=== PATIENT | female | born 1995 | race Hispanic/Latino ===

== ENCOUNTER 2017-12-01 23:22 | Observation (INO) | payer MEDICAID, OTHER ==
[~2017-12-01] VITALS: Ht 165.1 cm; Wt 86.6 kg
[2017-12-02 00:11] LABS: MEAN CORPUSCULAR HEMOGLOBIN 24.7 pg (27.0-33.0); MEAN CORPUSCULAR VOLUME 77.2 fL (79-99); PLATELET COUNT (AUTO) 231 K/uL (130-400); RED BLOOD CELL COUNT(AUTO) 2.27 MIL/uL (4.00-5.50); RED CELL DISTRIBUTION WIDTH 17.3 % (11.0-15.5); WHITE BLOOD COUNT (AUTO) 7.7 K/uL (4.8-10.8)
[2017-12-02 00:20] LABS: HEMATOCRIT 17.5 % (36-48)
[2017-12-02 00:22] LABS: CREATININE 0.7 mg/dL (0.5-1.5); POTASSIUM 3.7 mmol/L (3.5-5.1)
[2017-12-02 00:27] LABS: ALBUMIN 3.4 g/dL (3.5-5.0); BILIRUBIN,TOTAL 0.2 mg/dL (0.2-1.0); TOTAL PROTEIN, SERUM 6.3 g/dL (6.0-8.3)
[2017-12-02 00:27] LABS: APPEARANCE,URINE Clear (CLEAR); BILIRUBIN,URINE Negative (NEGATIVE); GLUCOSE, URINE (UA) Negative (NEGATIVE); KETONES,URINE Negative (NEGATIVE); LEUKOCYTE ESTERASE ,URINE Negative (NEGATIVE); NITRATE,URINE Negative (NEGATIVE); OCCULT BLOOD,URINE Large (NEGATIVE); PH,URINE 7.5 (5.0-8.0); PROTEIN,URINE Negative (NEGATIVE)
[2017-12-02 00:29] LABS: HCG,QUAL RESULT NEGATIVE (NEGATIVE)
[2017-12-02 00:30] LABS: COLOR,URINE Pink (YELLOW)
[2017-12-02 00:39] LABS: RBC,URINE 26-50 /HPF (0-1)
[2017-12-02 00:40] LABS: INR 0.96 (0.85-1.15); PARTIAL THROMBOPLASTIN TIME 24.6 SEC (26.3-35.5); PROTHROMBIN TIME 10.1 SEC (9.6-11.6)
[2017-12-02 00:40] LABS: BACTERIA,URINE Few /HPF (None Seen); MUCUS,URINE Rare LPF (None Seen); SQUAMOUS EPITHELIAL CELL,UR 0-2 /LPF (0-2); WBC,URINE 0-1 /HPF (0-1)
[2017-12-02 00:44] LABS: LYMPHOCYTES % (MANUAL) 30 % (22-44); MAN.DIFF COMMENT-IMPRESSION MANUAL DIFFERENTIAL; MONOCYTES % (MANUAL) 6 % (2-9); REACTIVE LYMPHOCYTES 3 % (0-0); SEGMENTED NEUTROPHILS % 61 % (40-70)
[2017-12-02 00:45] LABS: PLATELET MORPHOLOGY COMMENT ADEQUATE
[2017-12-02] MEDS ORDERED: TRAMADOL HCL 50 MG TABLET ONE (01:03)
[2017-12-02] MEDS ORDERED: ONDANSETRON HCL 4 MG/2 ML VIAL ONE (02:27)
[2017-12-02] MEDS ORDERED: MEPERIDINE-PF 25 MG/ML SYG ONE (02:27)
[2017-12-02 04:53] VITALS: BP 118/67
[2017-12-02 07:20] VITALS: BP 99/65
[2017-12-02 10:24] LABS: HEMATOCRIT 23.6 % (36-48)
[2017-12-02 11:27] VITALS: BP 96/58
[2017-12-02] MEDS ORDERED: NORETHINDRONE-ETHINYL ESTRAD 1 TABLET PO SCH (12:00)
[2017-12-02] MEDS ORDERED: FERROUS SULFATE 325 MG TABLET.DR PO SCH (12:00)
[2017-12-02 15:45] VITALS: BP 109/59
[2017-12-02] MEDS ORDERED: NORE1TAB30 PO (17:29)
[2017-12-02] MEDS ORDERED: FERS325 PO (17:30)
== END 2017-12-02 18:30 | disposition home or self-care (01) ==
LOC: EDH 23:22 → WSH 23:23 → EDHIP 23:23
PROVIDERS: ADMIT Obstetrics & Gynecology; ATTEND Obstetrics & Gynecology
DX: N93.9 Abnormal uterine and vaginal bleeding, unspecified (principal)
CPT/HCPCS: 36415 ×2; 36430; 76830; 80053; 81001; 81025; 85025; 85610; 85730; 86850; 86900; 86901; 86922; 88313; 99285; G0378 ×19; J2175; J2405; P9016 ×3

== ENCOUNTER 2020-03-30 07:33 | Emergency (ER) | payer MEDICAID ==
[~2020-03-30 07:33] MED LIST: FERS325 PO; NORE1TAB30 PO
[2020-03-30 08:39] LABS: BASOPHILS % (AUTO) 0.6 % (0.0-5.0); EOSINOPHILS % (AUTO) 4.9 % (0.0-8.0); HEMATOCRIT 37.6 % (36-48); LYMPHOCYTES % (AUTO) 29.7 % (21.0-51.0); MEAN CORPUSCULAR HGB CONC 35.1 g/dL (32.0-36.0); MEAN CORPUSCULAR VOLUME 85.5 fL (79-99); MONOCYTES % (AUTO) 5.8 % (3.0-13.0); NEUTROPHILS % (AUTO) 57.9 % (40.0-77.0); PLATELET COUNT (AUTO) 180 K/uL (130-400); WHITE BLOOD COUNT (AUTO) 10.7 K/uL (4.8-10.8)
[2020-03-30 08:59] LABS: CREATININE 0.5 mg/dL (0.5-1.5); POTASSIUM 3.7 mmol/L (3.5-5.1)
[2020-03-30 09:25] LABS: BILIRUBIN,DIRECT 0.1 mg/dL (0.0-0.3); BILIRUBIN,TOTAL 0.4 mg/dL (0.2-1.0); TOTAL PROTEIN, SERUM 6.3 g/dL (6.0-8.3)
[2020-03-30 09:32] LABS: APPEARANCE,URINE CLEAR (CLEAR); BILIRUBIN,URINE NEGATIVE (NEGATIVE); COLOR,URINE ORANGE (YELLOW); GLUCOSE, URINE (UA) NEGATIVE (NEGATIVE); KETONES,URINE NEGATIVE (NEGATIVE); LEUKOCYTE ESTERASE ,URINE NEGATIVE (NEGATIVE); NITRATE,URINE NEGATIVE (NEGATIVE); OCCULT BLOOD,URINE LARGE (NEGATIVE); PH,URINE 7.5 (5.0-8.0); PROTEIN,URINE TRACE mg/dL (NEGATIVE); UROBILINOGEN,URINE 0.2 mg/dL (0.2-1.0)
[2020-03-30 09:41] LABS: AMPHET/METH SCREEN,URINE NEGATIVE (NEGATIVE); BARBITURATE SCREEN, URINE NEGATIVE (NEGATIVE); BENZODIAZEPINES SCREEN,URINE NEGATIVE (NEGATIVE); CANNABINOID SCREEN,URINE NEGATIVE (NEGATIVE); COCAINE SCREEN,URINE NEGATIVE (NEGATIVE); OPIATE SCREEN,URINE NEGATIVE (NEGATIVE); PHENCYCLIDINE SCREEN,URINE NEGATIVE (NEGATIVE)
[2020-03-30 09:46] LABS: BACTERIA,URINE Rare /HPF (None Seen); RBC,URINE TNTC /HPF (0-1); SQUAMOUS EPITHELIAL CELL,UR Rare /HPF (0-2)
== END 2020-03-30 11:19 | disposition home or self-care (01) ==
LOC: EDH 07:33
DX: O20.0 Threatened abortion (principal); Z3A.13 13 weeks gestation of pregnancy
CPT/HCPCS: 36415; 76810; 80048; 80076; 80305; 81001; 82550; 84702; 85025

== ENCOUNTER 2020-09-04 05:46 | Inpatient (IN) | payer MEDICAID ==
[~2020-09-04] VITALS: Ht 165.1 cm; Wt 111.1 kg
[2020-09-04] MEDS ORDERED: LACTATED RINGERS 1000ML 1,000 ML IV SCH (06:00)
[2020-09-04] MEDS ORDERED: CEFAZOLIN SODIUM 1 GM VIAL IVP PRN (06:00)
[2020-09-04 06:45] LABS: HEMATOCRIT 38.5 % (36-48); MEAN CORPUSCULAR HEMOGLOBIN 31.7 pg (27.0-33.0); MEAN CORPUSCULAR HGB CONC 35.6 g/dL (32.0-36.0); MEAN CORPUSCULAR VOLUME 89.1 fL (79-99); RED BLOOD CELL COUNT(AUTO) 4.32 MIL/uL (4.00-5.50); RED CELL DISTRIBUTION WIDTH 13.2 % (11.0-15.5)
[2020-09-04] MEDS ORDERED: CALDOLOR 800MG+NS 250ML 250 ML IV ONE (07:16)
[2020-09-04] MEDS ORDERED: METHYLERGONOVINE MALEATE 0.2 MG/1 ML ML ONE (07:17)
[2020-09-04 07:18] VITALS: BP 117/76
[2020-09-04] MEDS ORDERED: DURAMORPH PF1 MG/ML 10ML AMP IV ONE (07:45)
[2020-09-04] MEDS ORDERED: EPHEDRINE SULFATE 50 MG/ML AMPULE ONE (07:57)
[2020-09-04] MEDS ORDERED: ONDANSETRON HCL 4 MG/2 ML VIAL ONE (07:58)
[2020-09-04] MEDS ORDERED: SODIUM CHLORIDE 0.9% 10 ML VIAL IVP PRN (09:00)
[2020-09-04] MEDS ORDERED: OXYTOCIN-LR 20 UNITS/1000 ML 1,000 ML IV PRN (09:00)
[2020-09-04] MEDS ORDERED: MEPERIDINE-PF 75 MG/ML SYG IM PRN (09:00)
[2020-09-04] MEDS ORDERED: PROMETHAZINE HCL 25 MG/ML 1ML AMPULE IM PRN (09:00)
[2020-09-04] MEDS ORDERED: MISOPROSTOL 200 MCG TABLET ONE (10:35)
[2020-09-04] MEDS ORDERED: DiphenhydrAMINE HCL 50 MG/ML VIAL IVP PRN (10:45)
[2020-09-04] MEDS ORDERED: ONDANSETRON HCL 4 MG/2 ML VIAL IVP PRN (10:45)
[2020-09-04] MEDS ORDERED: NALOXONE HCL 0.4 MG/1 ML ML IVP PRN ×3 (10:45)
[2020-09-04 10:48] VITALS: BP 120/79
[2020-09-04 11:42] LABS: BASOPHILS % (AUTO) 0.2 % (0.0-5.0); EOSINOPHILS % (AUTO) 0.4 % (0.0-8.0); HEMATOCRIT 39.9 % (36-48); LYMPHOCYTES % (AUTO) 19.4 % (21.0-51.0); MEAN CORPUSCULAR HEMOGLOBIN 31.5 pg (27.0-33.0); MEAN CORPUSCULAR HGB CONC 34.6 g/dL (32.0-36.0); MEAN CORPUSCULAR VOLUME 91.1 fL (79-99); MONOCYTES % (AUTO) 5.1 % (3.0-13.0); NEUTROPHILS % (AUTO) 74.5 % (40.0-77.0); PLATELET COUNT (AUTO) 142 K/uL (130-400); RED BLOOD CELL COUNT(AUTO) 4.38 MIL/uL (4.00-5.50); RED CELL DISTRIBUTION WIDTH 13.4 % (11.0-15.5)
[2020-09-04 17:04] VITALS: BP 114/78
[2020-09-04] MEDS: DEXTROSE 5 %-0.45 % NACL 1,000 ML IV PRN (17:07)
[2020-09-04] MEDS: CALDOLOR 800MG+NS 250ML 250 ML IV SCH (17:07)
[2020-09-04] MEDS ORDERED: DIPH,PERTUSS(ACELL),TET VAC/PF 0.5 ML VIAL IM SCH (18:30)
[2020-09-04 19:22] VITALS: BP 120/80
[2020-09-04 23:22] VITALS: BP 115/77
[2020-09-05] MEDS: CALDOLOR 800MG+NS 250ML 250 ML IV SCH (01:15)
[2020-09-05] MEDS: DEXTROSE 5 %-0.45 % NACL 1,000 ML IV PRN (01:15)
[2020-09-05 03:45] VITALS: BP 107/66
[2020-09-05 06:28] LABS: HEMATOCRIT 32.9 % (36-48); MEAN CORPUSCULAR HEMOGLOBIN 31.2 pg (27.0-33.0); MEAN CORPUSCULAR VOLUME 91.6 fL (79-99); RED BLOOD CELL COUNT(AUTO) 3.59 MIL/uL (4.00-5.50); RED CELL DISTRIBUTION WIDTH 13.4 % (11.0-15.5); WHITE BLOOD COUNT (AUTO) 10.5 K/uL (4.8-10.8)
--- NOTE | 2020-09-05 06:50 | NUR ---
DAVID CHAPA, YOLANDA CARE DONE PT SAT UP AT BEDSIDE BY CORTEZ CONWAY TO CALL FOR ASSIST BEFORE GETTING OUT OF BED, VERBALIZED UNDERSTANDING. Addendum: 09/05/20 at 0707 by RICKY MCCULLOUGH RN RN Amended: Links added.
[2020-09-05 07:10] VITALS: BP 114/68
[2020-09-05 08:13] LABS: HEPATITIS Bs ANTIGEN SCREEN P Negative (Negative)
--- NOTE | 2020-09-05 08:15 | NUR ---
PATIENT WAS ASSISTED UP TO BATHROOM AND VOIDED 400CC AND TOLERATED ACTIVITY WELL. PATIENT WAS ASSESSED AND DRESSING TO ABDOMEN WAS REMOVED AND INCISION HAS NO DRAINAGE, SWELLING OR REDNESS. NON ADHESIVE PAD APPLIED TO INCISIONAL SITE AND PATIENT WAS INSTRUCTED ON INCISIONAL CARE AFTER DISCHARGE.
[2020-09-05] MEDS ORDERED: ACETAMINOPHEN-CODEINE 300/30MG TAB PO PRN (08:30)
[2020-09-05] MEDS ORDERED: LANOLIN 30GM OINTMENT TP PRN (08:30)
[2020-09-05] MEDS ORDERED: BISACODYL 10 MG SUPP.RECT RC PRN (08:30)
[2020-09-05] MEDS ORDERED: HYDROCODONE/ACETAMINOPHEN 5/325 MG TAB PO PRN (08:30)
[2020-09-05] MEDS ORDERED: ACETAMINOPHEN EXTRA STRENGTH 500 MG TABLET PO PRN (08:30)
[2020-09-05] MEDS ORDERED: IBUPROFEN 800 MG TAB PO SCH (09:00)
[2020-09-05] MEDS ORDERED: DOCUSATE SODIUM 100 MG CAP PO SCH (09:00)
[2020-09-05] MEDS: SIMETHICONE 80 MG TAB.CHEW PO PRN ×2 (09:02→14:18)
[2020-09-05 11:47] VITALS: BP 107/52
--- NOTE | 2020-09-05 12:00 | NUR ---
PATIENT WAS ISSUED LANOLIN CREAM TO AVOID SORE AND CRACK NIPPLES. PATIENT INSTRUCTED ON USE.
--- NOTE | 2020-09-05 13:30 | NUR ---
DISCHARGE INSTRUCTIONS GIVEN AND PATIENT VERBALIZED UNDERSTANDING INSTRUCTIONS GIVEN. SCRIPT FOR PAIN MANAGEMENT GIVEN AND AND DOSAGE AND FREQUENCY OF MEDICATIONS REVIEWED. PATIENT ALLOWED TO ASK QUESTIONS. VERBALIZES PASSING GAS AND REFUSED TO GET DULCOLAX SUPPOSITORY. PRUNE JUICE GIVEN REQUESTED BY PATIENT.
--- NOTE | 2020-09-05 14:20 | NUR ---
PATIENT WAS TAKEN VIA W/C CARRYING BOTH BABIES IN ARMS AND WAS DISCHARGED TO HER SPOUSE IN STABLE CONDITION.
== END 2020-09-05 14:20 | disposition home or self-care (01) | DRG 540 ==
LOC: LDH 05:46 → WSH 10:45
PROVIDERS: ADMIT Obstetrics & Gynecology; ATTEND Obstetrics & Gynecology
PROC: 3E0234Z Introduction of Serum, Toxoid and Vaccine into Muscle, Percutaneous Approach (ICD-10-PCS; 2020-09-04)
PROC: 10D00Z1 Extraction of Products of Conception, Low, Open Approach (ICD-10-PCS; principal; 2020-09-04 07:30)
DX: O30.033 Twin pregnancy, monochorionic/diamniotic, third trimester (principal); Z3A.37 37 weeks gestation of pregnancy; Z37.2 Twins, both liveborn; Z23 Encounter for immunization; O32.2XX2 Maternal care for transverse and oblique lie, fetus 2; O99.824 Streptococcus B carrier state complicating childbirth
CPT/HCPCS: 36415; 59510; 85025; 85027; 86592; 86850; 86900; 86901; 87340; 90715; A4344; G0378; J0690; J1741; J2210; J2274; J2405; J2590; J3490; J7120

== ENCOUNTER → 2021-01-18 | Outpatient (CLI) | payer MEDICAID | END | disposition home or self-care (01) | LOC: LAB 01-12 10:34 | PROVIDERS: ATTEND Obstetrics & Gynecology | DX: R06.02 Shortness of breath (principal) | CPT/HCPCS: 93005 ==

== ENCOUNTER 2023-07-03 14:54 | Observation (INO) | payer MEDICAID ==
[~2023-07-03] VITALS: Ht 165.1 cm; Wt 105.7 kg
[2023-07-03 17:58] LABS: APPEARANCE,URINE CLOUDY (CLEAR); BILIRUBIN,URINE MODERATE mg/dL (NEGATIVE); COLOR,URINE RED (YELLOW); GLUCOSE, URINE (UA) 100 mg/dL (NEGATIVE); KETONES,URINE 15 mg/dL (NEGATIVE); LEUKOCYTE ESTERASE ,URINE MODERATE Leu/uL (NEGATIVE); NITRATE,URINE POSITIVE (NEGATIVE); OCCULT BLOOD,URINE LARGE (NEGATIVE); PH,URINE 6.5 (5.0-8.0); PROTEIN,URINE >=300 mg/dL (NEGATIVE)
[2023-07-03 17:59] LABS: ADD UA MICROSCOPIC YES
[2023-07-03 18:06] LABS: BASOPHILS # (AUTO) 0.05 K/uL (0.00-0.20); BASOPHILS % (AUTO) 0.6 % (0.0-5.0); EOSINOPHILS # (AUTO) 0.21 K/uL (0.00-0.70); EOSINOPHILS % (AUTO) 2.3 % (0.0-8.0); HEMATOCRIT 29.2 % (36-48); IMMATURE GRANULOCYTE ABSOLUTE 0.09 K/uL (0-1); LYMPHOCYTES # (AUTO) 3.5 K/uL (1.0-4.8); LYMPHOCYTES % (AUTO) 39.1 % (21.0-51.0); MEAN CORPUSCULAR HEMOGLOBIN 30.2 pg (27.0-33.0); MEAN CORPUSCULAR HGB CONC 35.3 g/dL (32.0-36.0); MEAN CORPUSCULAR VOLUME 85.6 fL (79-99); MONOCYTES # (AUTO) 0.5 K/uL (0.1-1.0); MONOCYTES % (AUTO) 5.2 % (3.0-13.0); NEUTROPHILS # (AUTO) 4.7 K/uL (1.8-7.7); NEUTROPHILS % (AUTO) 51.8 % (40.0-77.0); PLATELET COUNT (AUTO) 235 K/uL (130-400); RED BLOOD CELL COUNT(AUTO) 3.41 MIL/uL (4.00-5.50); RED CELL DISTRIBUTION WIDTH 12.7 % (11.0-15.5)
[2023-07-03 18:13] LABS: HCG,QUALITATIVE URINE NEGATIVE (NEGATIVE)
[2023-07-03 18:19] LABS: ALBUMIN 3.3 g/dL (3.5-5.0); BILIRUBIN,TOTAL 0.3 mg/dL (0.2-1.0); CREATININE 0.7 mg/dL (0.5-1.5); POTASSIUM 4.1 mmol/L (3.5-5.1); TOTAL PROTEIN, SERUM 6.2 g/dL (6.0-8.3)
[2023-07-03 18:54] LABS: RBC,URINE TNTC /HPF (0-1)
[2023-07-03 18:55] LABS: BACTERIA,URINE Rare /HPF (None Seen); SQUAMOUS EPITHELIAL CELL,UR Rare /HPF (0-2)
[2023-07-03] MEDS ORDERED: SULF1TAB42 PO (19:05)
[2023-07-03] MEDS ORDERED: IBUP-2070 PO (19:05)
[2023-07-03 21:19] VITALS: O2SAT 100
[2023-07-03] MEDS ORDERED: MEDROXYPROGESTERONE ACET 5 MG TAB PO SCH (21:30)
[2023-07-03] MEDS ORDERED: NORETHINDRONE-ETHINYL ESTRAD 1 TABLET PO SCH (21:30)
[2023-07-03] MEDS ORDERED: MORPHINE 2 MG SYG IV PRN (21:30)
[2023-07-03] MEDS ORDERED: ACETAMINOPHEN 325 MG TAB PO PRN ×2 (21:30)
[2023-07-03] MEDS ORDERED: CEFTRIAXONE 1G VIAL 1 GM in 0.9%NACL 50ML 50 ML IV SCH (21:30)
[2023-07-03] MEDS ORDERED: MORPHINE 4 MG SYG IV PRN (21:30)
[2023-07-03] MEDS: CEFTRIAXONE 1G VIAL IVPB SCH (21:59)
[2023-07-03 22:25] LABS: HEMATOCRIT 26.8 % (36-48)
[2023-07-03 22:35] VITALS: BP 121/79; PULSE 79; RESP 18
[2023-07-03] MEDS ORDERED: CLON2TAB11 PO (23:32)
[2023-07-03] MEDS ORDERED: ESCI20TA38 PO (23:32)
[2023-07-04] VITALS (25 sets, daily range): BP systolic 102–136; BP diastolic 54–83; PULSE 73–99; RESP 13–20
[2023-07-04 04:30] LABS: BASOPHILS # (AUTO) 0.04 K/uL (0.00-0.20); BASOPHILS % (AUTO) 0.5 % (0.0-5.0); EOSINOPHILS # (AUTO) 0.19 K/uL (0.00-0.70); EOSINOPHILS % (AUTO) 2.2 % (0.0-8.0); HEMATOCRIT 25.6 % (36-48); IMMATURE GRANULOCYTE ABSOLUTE 0.05 K/uL (0-1); LYMPHOCYTES # (AUTO) 3.5 K/uL (1.0-4.8); LYMPHOCYTES % (AUTO) 41.2 % (21.0-51.0); MEAN CORPUSCULAR HEMOGLOBIN 30.8 pg (27.0-33.0); MEAN CORPUSCULAR HGB CONC 35.2 g/dL (32.0-36.0); MEAN CORPUSCULAR VOLUME 87.7 fL (79-99); MONOCYTES # (AUTO) 0.4 K/uL (0.1-1.0); MONOCYTES % (AUTO) 5.1 % (3.0-13.0); NEUTROPHILS # (AUTO) 4.3 K/uL (1.8-7.7); NEUTROPHILS % (AUTO) 50.4 % (40.0-77.0); PLATELET COUNT (AUTO) 194 K/uL (130-400); RED BLOOD CELL COUNT(AUTO) 2.92 MIL/uL (4.00-5.50); RED CELL DISTRIBUTION WIDTH 12.7 % (11.0-15.5); WHITE BLOOD COUNT (AUTO) 8.6 K/uL (4.8-10.8)
[2023-07-04 04:47] LABS: CREATININE 0.7 mg/dL (0.5-1.5); POTASSIUM 3.7 mmol/L (3.5-5.1)
[2023-07-04] MEDS: FAMOTIDINE 20MG TAB PO SCH ×2 (07:46→20:42)
[2023-07-04] MEDS ORDERED: NORETHINDRONE-ETHINYL ESTRAD 1 TABLET PO SCH ×2 (09:00→20:00)
[2023-07-04] MEDS ORDERED: MEDROXYPROGESTERONE ACET 5 MG TAB PO SCH (09:00)
[2023-07-04 09:34] LABS: SARS-CoV-2, RNA, NAAT NEGATIVE SARS CoV-2 (NEGATIVE)
[2023-07-04] MEDS ORDERED: LEVO-70 PO (12:28)
[2023-07-04] MEDS ORDERED: PROPOFOL 10 MG/ML 20ML VIAL IV ONE (17:15)
[2023-07-04] MEDS ORDERED: LIDOCAINE PF 100MG/5ML (2%) SYRINGE 5ML ONE (17:15)
[2023-07-04] MEDS ORDERED: MIDAZOLAM HCL 1 MG/ML 2ML VIAL ONE (17:15)
[2023-07-04] MEDS ORDERED: FENTANYL CITRATE PF 50 MCG/1 ML 2ML VIAL ONE (17:16)
[2023-07-04] MEDS ORDERED: ONDANSETRON 4MG INJ ONE (17:30)
[2023-07-04] MEDS ORDERED: MEPERIDINE-PF 25 MG/ML SYG ONE (18:27)
[2023-07-04] MEDS ORDERED: KETOROLAC 30MG VIAL (30MG/ML) ONE (18:28)
[2023-07-04] MEDS: ONDANSETRON 4MG INJ IV PRN (19:10)
[2023-07-04] MEDS ORDERED: [UNRECOGNIZED DRUG - CODE] PO (21:36)
[2023-07-04] MEDS: CEFTRIAXONE 1G VIAL IVPB SCH (21:40)
== END 2023-07-04 22:50 | disposition home or self-care (01) ==
LOC: EDH 14:54 → INTOOBSV 14:55 → EDHIP 14:55 → WSH 22:25
PROVIDERS: ADMIT Internal Medicine; ATTEND Internal Medicine
DX: N92.0 Excessive and frequent menstruation with regular cycle (principal); Z20.822 Contact with and (suspected) exposure to COVID-19; N83.291 Other ovarian cyst, right side; D65 Disseminated intravascular coagulation [defibrination syndrome]; N39.0 Urinary tract infection, site not specified; D64.9 Anemia, unspecified; E11.9 Type 2 diabetes mellitus without complications; I10 Essential (primary) hypertension; Z51.5 Encounter for palliative care; Z79.899 Other long term (current) drug therapy
CPT/HCPCS: 96365; 99284; 80053; 85025 ×2; 85014; 85018; 86850; 86900; 86901; 87077; 87088; 87186; 81001; 81025; 36415 ×2; 76856; 58558; 96366; 96375; 80048; 88305; 87635; J0696 ×2; G0378 ×5; A4606; J3010; J3490 ×2; J2250; J2405 ×2; J1885; J2175; J7030; J2001; J2704

== ENCOUNTER 2025-08-07 14:07 | Emergency (ER) | payer SELFPAY ==
[~2025-08-07] VITALS: Ht 165.1 cm; Wt 102.1 kg
[~2025-08-07 14:07] MED LIST changes: +CLON2TAB11 PO; +ESCI20TA38 PO; +IBUP-1492 PO; +LEVO-70 PO; +[UNRECOGNIZED DRUG - CODE] PO
[2025-08-07 14:54] LABS: IMMATURE GRANULOCYTE ABSOLUTE 0.03 K/uL (0-1); NUCLEATED RED BLOOD CELLS 0.0 % (0.0-0.19); PLATELET COUNT (AUTO) 262 K/uL (130-400); RED BLOOD CELL COUNT(AUTO) 4.36 MIL/uL (4.00-5.50); RED CELL DISTRIBUTION WIDTH 15.8 % (11.0-15.5); WHITE BLOOD COUNT (AUTO) 10.5 K/uL (4.8-10.8)
[2025-08-07 15:02] LABS: CREATININE 0.7 mg/dL (0.5-1.0); GLOMERULAR FILTR. RATE CALC 119.0 mL/min (>90); GLUCOSE,RANDOM 84.0 mg/dL (70-105); SODIUM SERUM 139.0 mmol/L (136-145); UREA NITROGEN, BLOOD 9.0 mg/dL (7-18)
[2025-08-07 15:25] LABS: APPEARANCE,URINE CLEAR (CLEAR); GLUCOSE, URINE (UA) NEGATIVE (NEGATIVE); LEUKOCYTE ESTERASE ,URINE NEGATIVE Leu/uL (NEGATIVE); NITRATE,URINE NEGATIVE (NEGATIVE); OCCULT BLOOD,URINE LARGE (NEGATIVE)
[2025-08-07 15:26] LABS: ADD UA MICROSCOPIC YES
[2025-08-07 15:27] LABS: SQUAMOUS EPITHELIAL CELL,UR RARE /HPF (0-2)
--- NOTE | 2025-08-07 18:50 | HMCIMG ---
EXAM: US Pelvis, Complete Transabdominal. COMPARISON: Ultrasound pelvis dated 07/03/23. CLINICAL HISTORY: Heavy menstrual bleeding/anemia. TECHNIQUE: Transabdominal pelvic ultrasound (complete) with image documentation. FINDINGS: ENDOMETRIUM: Endometrium appears thickened, measuring 19 mm. UTERUS/CERVIX: Uterus appears mildly bulky, measuring 10 ??? 5.6 ??? 7.6 cm. No uterine fibroid or other mass is evident. RIGHT OVARY: Normal Doppler flow. A small anechoic cyst is seen, measuring 2.6 ??? 2.7 ??? 3.4 cm. LEFT OVARY: Normal Doppler flow. No abnormal mass. FREE FLUID: No free fluid. IMPRESSION: 1. Thickened endometrium measuring 19 mm. 2. Small right ovarian cyst measuring 2.6 ??? 2.7 ??? 3.4 cm. 3. Mildly bulky uterus measuring 10 ??? 5.6 ??? 7.6 cm. /[place]
[2025-08-07 18:54] VITALS: BP 130/86; PULSE 82; RESP 16; TEMP 98.4; O2SAT 98
--- NOTE | 2025-08-07 19:21 | ERN ---
General Chief Complaint: Vaginal Problems/Bleeding Stated Complaint: VAGINAL BLEEDING Time Seen by MD: 14:40 Time Seen by Midlevel: 14:40 Source: patient History of Present Illness Initial Comments The patient is a 30-year-old female presenting to the emergency department for evaluation of the heavy vaginal bleeding that started three days ago. Allergies: Coded Allergies: No Known Drug Allergies (Unverified Allergy, Unknown, 07/13/17) Home Meds Active Scripts Levofloxacin (Levofloxacin) 500 Mg Tablet, 500 MG PO DAILY for 5 Days, #5 TAB Prov:ISAÍAS WHITING SWORD SWALLOWER 07/04/23 Ibuprofen (Ibuprofen) 600 Mg Tablet, 600 MG PO Q6H PRN for PAIN, #30 TAB Prov:HYUN ROSS V CIVIL CELEBRANT 07/03/23 Reported Medications Norethindrone-Ethinyl Estrad (Necon) 1 Each Tablet, 1 EACH PO DAILY, TAB 07/04/23 Escitalopram Oxalate (Escitalopram Oxalate) 20 Mg Tablet, 20 MG PO DAILYLUNCH, TAB 07/03/23 Clonazepam (Clonazepam) 2 Mg Tablet, 2 MG PO AD PRN for ANXIETY/AGITATION, TAB 07/03/23 Ferrous Sulfate (Ferrous Sulfate) 325 Mg Ectab, 325 MG PO DAILYBKFST for ANEMIA, #30 TAB.EC 0 Refills 12/02/17 Norethindrone-Ethinyl Estrad (Nortrel 1-35 28 Tablet) 1 Each Tablet, 1 EACH PO BID for BLEEDING, #1 TAB 12/02/17 Past Medical History Past Medical History: Other Medical History Other: OVARIAN CYST Past Surgical History: ROS Dictation CONSTITUTIONAL: Negative except for HPI HEAD/FACE: Negative except for HPI EENT: Negative except for HPI RESPIRATORY: Negative except for HPI GASTROINTESTINAL/ABDOMINAL: Negative except for HPI GENITOURINARY: Negative except for HPI MUSCULOSKELETAL: Negative except for HPI INTEGUMENTARY: Negative except for HPI NEUROLOGICAL/PSYCH: Negative except for HPI HEMATOLOGIC/LYMPHATIC: Negative except for HPI All Systems Negative, Except as noted above. 13 point review of systems assessed and all negative except for above. Physical Exam Physical Exam Dictation Vital Signs reviewed General Appearance: Alert, oriented x 3, no acute distress, well developed, nourished. Head and Face: non-traumatic. Eyes: PERRL, pink conjunctivas, eyelid no trauma, anterior chamber with arcus senilis. Ears: Pinnas intact and no signs of trauma or erythema ear canals clear and no discharge TM no erythema Nose: No discharge, no bleeding. Oropharynx: Mouth normal, tongue pink, pharynx clear,no erythema, tonsils no exudates, no abscesses noted, mucous membrane moist Neck: Supple, non-tender, no thyromegaly, no masses, no JVD, no bruits Breast:Deferred Chest:No tenderness, no crepitus, no paradoxical movement, no retractions Lungs:Clear, well-ventilated, symmetric, no rales, no wheezing, no rhonchi, no stridor, good breath sounds bilaterally Heart: Regular rate, regular rhythm, no murmur, no gallops Vascular: no peripheral edema, Abdomen: Soft, positive bowel sounds, nondistended, no guarding, nontender, no rebound, no masses no hepatomegaly, no splenomegaly, no Tomlinson's sign, no hernias. Rectal: Deferred Genital: Deferred Neurological: Normal speech, motor function intact, sensory function intact Musculoskeletal: Neck nontender, full range of motion, back nontender, full ra nge of motion, Extremities: nontender, full range of motion Skin: Color pink, dry, no turgor, no rash, no lacerations, no abrasions, no contusions. Lymphatic: Deferred Results Laboratory and Microbiology Lab and Micro Result Laboratory Tests Test 08/07/25 14:45 08/07/25 15:13 White Blood Count 10.5 K/uL (4.8-10.8) Red Blood Count 4.36 MIL/uL (4.00-5.50) Hemoglobin 10.4 g/dL (12.0-16.0) L Hematocrit 32.7 % (36-48) L Mean Corpuscular Volume 75.0 fL (79-99) L Mean Corpuscular Hemoglobin 23.9 pg (27.0-33.0) L Mean Corpuscular Hemoglobin Concent 31.8 g/dL (32.0-36.0) L Red Cell Distribution Width 15.8 % (11.0-15.5) H Platelet Count 262 K/uL (130-400) Mean Platelet Volume 9.2 fL (7.5-10.5) Immature Granulocyte % (Auto) 0.3 % (0-1) Neutrophils (%) (Auto) 58.8 % (40.0-77.0) Lymphocytes (%) (Auto) 32.8 % (21.0-51.0) Monocytes (%) (Auto) 5.4 % (3.0-13.0) Eosinophils (%) (Auto) 2.1 % (0.0-8.0) Basophils (%) (Auto) 0.6 % (0.0-5.0) Neutrophils # (Auto) 6.2 K/uL (1.8-7.7) Lymphocytes # (Auto) 3.4 K/uL (1.0-4.8) Monocytes # (Auto) 0.6 K/uL (0.1-1.0) Eosinophils # (Auto) 0.22 K/uL (0.00-0.70) Basophils # (Auto) 0.06 K/uL (0.00-0.20) Absolute Immature Granulocyte (auto 0.03 K/uL (0-1) Nucleated Red Blood Cells 0.0 % (0.0-0.19) Red Blood Cell Morphology See comments Sodium Level 139 mmol/L (136-145) Potassium Level 4.1 mmol/L (3.5-5.1) Chloride Level 104 mmol/L (101-111) Carbon Dioxide Level 29 mmol/L (21-32) Blood Urea Nitrogen 9 mg/dL (7-18) Creatinine 0.7 mg/dL (0.5-1.0) Glomerular Filtration Rate Calc 119 mL/min (>90) Random Glucose 84 mg/dL (70-105) Total Calcium 8.8 mg/dL (8.5-10.1) Serum Test, Qualitative NEGATIVE (NEGATIVE) Urine Color LIGHT-YELLOW (YELLOW) Urine Appearance CLEAR (CLEAR) Urine pH 5.5 (5.0-8.0) Urine Specific Notrees 1.020 (1.001-1.031) Urine Protein NEGATIVE mg/dL (NEGATIVE) Urine Glucose (UA) NEGATIVE mg/dL (NEGATIVE) Urine Ketones NEGATIVE mg/dL (NEGATIVE) Urine Occult Blood LARGE (NEGATIVE) H Urine Nitrate NEGATIVE (NEGATIVE) Urine Bilirubin NEGATIVE mg/dL (NEGATIVE) Urine Urobilinogen 0.2 mg/dL (0.2-1.0) Urine Leukocyte Esterase NEGATIVE Josh/uL Urine RBC 51-100 /HPF (0-1) H Urine WBC 2-5 /HPF (0-1) H Urine Squamous Epithelial Cells RARE /HPF (0-2) Urine Bacteria RARE /HPF (None Seen) Labs Reviewed?: Yes MDM MDM: 30-year-old female presents for acute in the vaginal bleeding three days. She is hemodynamically stable, not tachycardic or hypotensive. Hemoglobin is 10.4 consistent with mild anemia. Pelvic ultrasound reveals thickened endometrium measuring 19 mm, a small right ovarian cyst and a mildly bulky uterus. Patient had a similar episode in 2022 with [id number] mm, was admitted at that time and underwent D&C with benign findings. Given current stability absence of severe anemia, and reassuring prior D&C, patient is stable for outpatient management. She was counseled that today's endometrial thickness is less than prior episode. Which is reassuring the recurrent abnormal uterine bleeding still requires gynecological follow up. Strict return precautions were discussed Differential diagnosis: Dysfunctional uterine bleeding There are no social concerns with this patient. Prescription drug management Prescriptions will include: None Medical management and examination interpretation discussions were had by me with other qualified healthcare professionals as indicated for the patient's care. ED Course Orders Procedure Category Date Status Time Cbc With Differential LAB 08/07/25 Complete 14:40 Basic Metabolic Panel LAB 08/07/25 Complete 14:40 Testing, LAB 08/07/25 Complete Serum Hcg 14:40 Urinalysis Profile LAB 08/07/25 Complete 14:40 Us Pelvic Non-Ob US 08/07/25 Resulted Limited 17:07 Vital Signs Date Time Temp Pulse Resp B/P (MAP) Pulse Ox O2 Delivery O2 Flow Rate FiO2 08/07/25 18:54 98.4 82 16 130/86 98 Room Air* 0 21 08/07/25 15:28 98.4 89 16 137/90 98 Room Air* 0 21 08/07/25 14:08 99.0 111 16 154/94 98 Room Air DX & DISP Disposition: Discharge Departure Impression: Primary Impression: Anemia Additional Impressions: Right ovarian cyst, Dysfunctional uterine bleeding Condition: Stable Additional Instructions: Discharge instructions - Vaginal Bleeding Diagnosis: - you were seen today for heavy vaginal bleeding. - your blood count shows mild anemia (hemoglobin 10.4), but you are stable and do not need hospitalization at this time. - Your ultrasound showed a thickened uterine lining and a small ovarian cyst on the right side. These findings are not immediately dangerous, but they need follow up with your slipman. - you had a similar episode in 2022 however at that time your uterine lining was significantly greater than what we saw today on ultrasound. - It is important to schedule a follow up with slipman within one week. Referrals: GLENDA MALLORY (PCP) CHASE EVANS MD Time of Disposition: 19:30 I have reviewed the case, and I agree with, Diagnosis and Plan I performed the substantive portion of the visit. I have reviewed and personally made and approve the management plan that is documented in the note by myself or the REAGAN. I acknowledge for responsibility for the patient's management plan. ANTHONY FREED Aug 07, 2025 19:21
== END 2025-08-07 19:45 | disposition home or self-care (01) ==
LOC: EDH 14:07
DX: D64.9 Anemia, unspecified (principal); N83.201 Unspecified ovarian cyst, right side; N93.8 Other specified abnormal uterine and vaginal bleeding; Z98.890 Other specified postprocedural states
CPT/HCPCS: 36415; 76857; 80048; 81001; 84703; 85025; 99284